=== PATIENT | male | born 1955 | race Caucasian/White ===

== ENCOUNTER 2016-12-22 18:20 | Inpatient (IN) | payer BC, OTHER ==
[~2016-12-22] VITALS: Ht 182.9 cm; Wt 99.3 kg
[2016-12-22] MEDS ORDERED: ATOR40TA PO (18:32)
[2016-12-22] MEDS ORDERED: IRBE75TA5 PO (18:32)
[2016-12-22] MEDS ORDERED: MORPHINE 4 MG/ML 1ML SYRINGE IV ONE (19:30)
[2016-12-22] MEDS ORDERED: ONDANSETRON 4MG/2ML VIAL (J2405) IV ONE ×2 (19:30→23:45)
[2016-12-22] MEDS ORDERED: NS 1,000 ML IV ONE (19:30)
[2016-12-22 19:44] LABS: BASO % 0.2 % (0.0-1.0); EOS # 0.1 K/mm3 (0.0-0.50); EOS % 0.8 % (0.0-3.0); LARGE UNSTAINED CELL # 0.1 K/mm3 (0.0-0.4); LARGE UNSTAINED CELL % 0.4 % (0.0-4.0); LYMPH # 1.6 K/mm3 (1.5-4.5); LYMPH % 8.8 % (24.0-44.0); MEAN CORPUSCULAR HEMOGLOBIN 29.5 pg (27.0-33.0); MEAN CORPUSCULAR HGB CONC 34.2 g/dl (32.0-36.5); MEAN CORPUSCULAR VOLUME 86.4 fl (80.0-96.0); MONO # 0.5 K/mm3 (0.0-0.8); MONO % 2.9 % (0.0-5.0); NEUTROPHILS % 86.8 % (36.0-66.0); PLATELET COUNT, AUTOMATED 193 k/mm3 (150-450); RED CELL DISTRIBUTION WIDTH 13.9 % (11.5-14.5); WHITE BLOOD COUNT 17.3 K/mm3 (4.0-10.0)
[2016-12-22 20:05] LABS: ALBUMIN/GLOBULIN RATIO 1.08 (1.00-1.93); ALKALINE PHOSPHATASE 77 U/L (45-117); ALT/SGPT 24 U/L (12-78); ANION GAP 9 MEQ/L (8-16); AST/SGOT 18 U/L (15-37); BILIRUBIN,DIRECT < 0.1 MG/DL (0.0-0.2); BILIRUBIN,TOTAL 0.3 MG/DL (0.2-1.0); BLOOD UREA NITROGEN 17 MG/DL (7-18); CALCIUM LEVEL 9.4 MG/DL (8.5-10.1); CARBON DIOXIDE LEVEL 31 MEQ/L (21-32); CHLORIDE LEVEL 103 MEQ/L (98-107); CREATININE FOR GFR 1.25 MG/DL (0.70-1.30); GLOMERULAR FILTRATION RATE > 60.0 (>56); GLUCOSE, FASTING 119 MG/DL (70-105); POTASSIUM SERUM 4.1 MEQ/L (3.5-5.1); SODIUM LEVEL 143 MEQ/L (136-145); TOTAL PROTEIN 7.7 GM/DL (6.4-8.2)
[2016-12-22] MEDS ORDERED: MORPHINE 2 MG/ML 1ML SYRINGE IV ONE ×2 (20:30→22:00)
--- NOTE | 2016-12-22 21:40 | REPUSA ---
CLINICAL HISTORY: Right flank pain. TECHNIQUE: Multiple axial, sagittal and coronal CT images were obtained through the abdomen and pelvi s without administration of oral or IV contrast material. COMMENTS: The liver is of uniform attenuation without mass or defect. There is no intra or extrahepatic biliary ductal dilatation. The spleen is normal. The gallbladder is within normal limits. The pancreas is of normal contour and attenuation characteristics. A 12 mm hypodense lesion is noted in the left adrena l gland compatible with small adenoma. Small hiatal hernia is present. The kidneys are normal in size, shape and configuration. No renal or ureteral calculi are identified. A 2 mm calculus is noted in the right UVJ producing mild to moderate hydroureteronephrosis. There is no evidence for appendicitis. Note is made of nodular wall thickening involving rectal wall highly suspicious for malignancy. Sigmoidoscopy is recommended. No evidence for small or large bowel obstruction. There is no evidence of abdominal ascites or lymphadenopathy. There is no evidence of intrinsic or extrinsic bladder mass. There is no pelvic ascites or lymphadeno sebastian. Images of the lung bases show no evidence of pleural or parenchymal mass. There are no pleural effusi ons. The bony structures are free of lytic or blastic lesions. Multilevel degenerative changes are seen in volving the thoracolumbar spine. Scattered calcifications are seen involving the aorta and major branches compatible with atherosclero sis. IMPRESSION: 1. A 2 mm calculus is noted in the right UVJ producing mild to moderate hydroureteronephrosis. 2. A 12 mm hypodense lesion is noted in the left adrenal gland compatible with small adenoma. Small hiatal hernia is present. 3. Nodular wall thickening involving rectal wall highly suspicious for malignancy. Sigmoidoscopy is recommended. Thank you for your kind referral of this patient. We appreciate the opportunity to participate in thi s patient's care.
[2016-12-22] MEDS ORDERED: METOCLOPRAMIDE INJ 10MG/2ML VIAL (J2765) IV ONE (22:00)
[2016-12-22] MEDS ORDERED: REGL10TA6 PO (22:40)
[2016-12-22] MEDS ORDERED: MOTR200T44 PO (22:40)
[2016-12-22] MEDS ORDERED: HYDR-3713 PO (22:40)
[2016-12-22] MEDS ORDERED: FLOM5CAP PO (22:40)
[2016-12-22] MEDS ORDERED: CIPR500T89 PO (22:53)
[2016-12-22] MEDS ORDERED: NORCO 5/325MG TABLET (BULK) PO ONE (23:00)
[2016-12-22] MEDS ORDERED: CIPROFLOXACIN 500 MG TAB PO ONE (23:00)
[2016-12-22] MEDS ORDERED: KETOROLAC 30 MG/ML VIAL (J1885) IV ONE (23:45)
[2016-12-23] MEDS ORDERED: ONDANSETRON 4MG/2ML VIAL (J2405) IV PRN (00:30)
[2016-12-23] MEDS ORDERED: ACETAMINOPHEN TAB 650MG DOSE (2X325MG) PO PRN (00:30)
[2016-12-23] MEDS ORDERED: FISH1000 PO (00:41)
[2016-12-23] MEDS ORDERED: IBUPOTC PO (00:41)
[2016-12-23] MEDS ORDERED: ASPI81TAEC PO (00:41)
--- NOTE | 2016-12-23 00:43 | HPEPDOC ---
General Date of Admission Dec 23, 2016 at 00:18 Chief Complaint The patient is a 61-year-old male Presented to the ER with complaints of right flank pain, associated with nausea and vomiting. History of Present Illness Patient is a 61 year old male with a PMHx of HTN and DLP who presented to the ER with complaints of right sided flank pain that started at 4PM today. He notes that he began to notice a pain in his right flank, described as a steady, 8/10, non-radiating, alleviated with only morphine that he got in the ER and not aggravated by any other factors. He noted that he had associated nausea and vomiting. He reports vomiting >10x mostly food stuff, no blood. He denies any dysuria, frequency or blood in his urine. He does note an abnormal odor. He has not had a history of kidney stones or kidney disease in the past. He denies any chest pain, shortness of breath or palpitations. He denies any new diarrhea or constipation. Denies any blood in his stool. Home Medications Scheduled Aspirin (Aspirin EC) 81 Mg Tabec 81 MG PO DAILY (Reported) Atorvastatin Calcium (Atorvastatin Calcium) 40 Mg Tab 40 MG PO DAILY (Reported ) Fish Oil (Fish Oil) 1,000 Mg Cap 1,000 MG PO DAILY (Reported) Irbesartan (Irbesartan) 75 Mg Tab 75 MG PO DAILY (Reported) Scheduled PRN Ibuprofen (Ibuprofen) 200 Mg Tab 400 MG PO Q6H PRN PRN PAIN (Reported) Allergies Coded Allergies: No Known Allergies (Unverified , 12/22/16) Past Medical History Medical History HTN and DLP Surgical History Left knee ACL tear repair Family History - Non-contributory Social History - Denies the use of alcohol or illicit drugs; Smoker of 40 years at 1.5 ppd - Denies recent travel or sick contacts - Lives with - Occupation; wholesale produce distributor Review of Symptoms Other systems Constitutional: Denies weight loss, change in appetite, or recent trauma Eyes: No visual changes or eye pain Ears, Nose, Throat: Denies nose bleeds, or difficulty swallowing Cardiovascular: Denies chest pain, sweating, or orthopnea Respiratory: Denies cough, wheezing, or shortness of breath GI: Positives nausea, vomiting, abdominal pain, No diarrhea or constipation : Denies pain with urination or frequency Musculoskeletal: Denies joint pain or swelling Neuro / Psych: Denies muscle weakness or sensory loss Skin: No skin rashes noted All other review of systems negative; otherwise stated in history of present illness Screening: - Colonoscopy never done Vital Signs - Vitals: BP 172/81, HR 69, RR 18, Sat 95%RA, Temp 98.8F - General: Lying in bed, No acute distress, Speaking in full sentences, AAOx3 - HEENT: NC, AT, PERRLA, EOMI - CVS: RRR, +S1S2, - Murmurs / rubs / gallops - Lungs: Fair air entry bilaterally, Clear to auscultation, No wheezing / rales / rhonchi - Abdomen: Soft, Non-distended, Mild tenderness at RLQ, + Bowel sounds x 4 - Extremities: + PPx4, No lower extremity edema, No calf tenderness - Neuro: No focal motor or sensory deficit - Skin: No visible rashes Laboratory Data Labs 24H Laboratory Tests 2 12/22/16 19:34: Aspartate Amino Transf (AST/SGOT) 18, Alanine Aminotransferase (ALT/SGPT) 24, Alkaline Phosphatase 77, Total Bilirubin 0.3, Direct Bilirubin < 0.1, Albumin 4.0, Albumin/Globulin Ratio 1.08, Anion Gap 9, White Blood Count 17.3H, Red Blood Count 5.32, Hemoglobin 15.7, Hematocrit 46.0, Mean Corpuscular Volume 86.4 , Mean Corpuscular Hemoglobin 29.5, Mean Corpuscular Hemoglobin Concent 34.2, Red Cell Distribution Width 13.9, Platelet Count 193, Neutrophils (%) (Auto) 86.8H, Lymphocytes (%) (Auto) 8.8L, Monocytes (%) (Auto) 2.9, Eosinophils (%) ( Auto) 0.8, Basophils (%) (Auto) 0.2, Neutrophils # (Auto) 15.0H, Lymphocytes # ( Auto) 1.6, Monocytes # (Auto) 0.5, Eosinophils # (Auto) 0.1, Basophils # (Auto) 0.0, Calcium Level 9.4, Glomerular Filtration Rate > 60.0, Large Unclassified Cells # 0.1, Large Unclassified Cells % 0.4, Lipase 81, Total Protein 7.7 12/22/16 21:45: Urine Amorphous Sediment SMALLH, Urine Appearance HAZY, Urine Color YELLOW, Urine pH 7.0, Urine Specific [place] 1.023, Urine Protein 1+H, Urine Glucose (UA ) NEGATIVE, Urine Ketones 1+H, Urine Urobilinogen 0.2, Urine Bilirubin NEGATIVE , Urine Leukocyte Esterase TRACEH, Urine Bacteria (Auto) NEGATIVE, Urine Blood 2 +H, Urine Calcium Carbonate Cryst(Auto) , Urine Calcium Oxalate Cryst (Auto) , Urine Calcium Phosphate Nelda (Auto) , Urine Cellular Casts , Urine Cystine Crystals , Urine Granular Casts (Auto) , Urine Hyaline Casts (Auto) 0, Urine Leucine Crystals , Urine Mucus (Auto) SMALL, Urine Nitrite NEGATIVE, Urine Oval Fat Bodies (Auto) , Urine RBC (Auto) 100H, Urine Renal Epithelial Cells , Urine Sperm (Auto) SMALLH, Urine Squamous Epithelial Cells 0, Urine Transitional Epithelial Cells , Urine Trichomonas (Auto) , Urine Triple Phosphate Cryst (Auto ) , Urine Tyrosine Crystals , Urine Uric Acid Crystals (Auto) , Urine WBC (Auto ) 6H, Urine Waxy Casts (Auto) , Urine Yeast-Like Cells (Auto) CBC/BMP Laboratory Tests 12/22/16 19:34 Red Blood Count 5.32, Mean Corpuscular Volume 86.4, Mean Corpuscular Hemoglobin 29.5, Mean Corpuscular Hemoglobin Concent 34.2, Red Cell Distribution Width 13.9 , Neutrophils (%) (Auto) 86.8 H, Lymphocytes (%) (Auto) 8.8 L, Monocytes (%) ( Auto) 2.9, Eosinophils (%) (Auto) 0.8, Basophils (%) (Auto) 0.2, Neutrophils # ( Auto) 15.0 H, Lymphocytes # (Auto) 1.6, Monocytes # (Auto) 0.5, Eosinophils # ( Auto) 0.1, Basophils # (Auto) 0.0 Microbiology Microbiology 12/22/16 Urine Culture, Received Pending Plan / VTE VTE Prophylaxis Ordered?: Yes Plan Plan Right flank pain associated with nausea and vomiting likely 2/2 hydronpehrosis and nephrolithiasis - Presented to the ER with complaints that started at 4pm - No history of kidney stones or kidney disease - Physical with mild RLQ pain - UA with 2+ blood, Trace LE - Leukocytosis on blood work - CT abdomen 12/22: 2mm calculus, in UVJ causing mild-moderate hydroureteronephrosis - Will start IV fluid hydration, will start Ceftriaxone - will start symptomatic control with morphine - Urology has been consulted by ER physician will evaluate the patient in the ER; possible intervention so will keep patient NPO Nodular wall thickening of rectal wall possible malignancy - Patient has not had a colonoscopy in the past - Denies any recent change in weight - Will check stool for occult blood - Will need to have a colonoscopy completed; can be completed as out patient Leukocytosis possibly reative, possibly infectious - will check urine culture, blood cultures - will start ceftriaxone IV and IV fluid hydration HTN - BP currently poorly controlled - will restart home medications with holding parameters and reassess DLP - c/w home medications Gastrointestinal prophylaxis - Will start protonix DVT prophylaxis - Will start heparin VALERIO LOVETT MD Dec 23, 2016 00:43
[2016-12-23] MEDS ORDERED: MORPHINE 4 MG/ML 1ML SYRINGE IV PRN (01:00)
[2016-12-23] MEDS ORDERED: FLOM5CAP PO ×2 (01:20→14:33)
[2016-12-23] MEDS ORDERED: TAMSULOSIN 0.4 MG CAP PO ONE (01:40)
[2016-12-23 02:00] VITALS: BP 119/57
[2016-12-23] MEDS ORDERED: cefTRIAXone SOD 1 GM in D5W MINI-BAG PLUS 50 ML IV SCH (02:00)
[2016-12-23] MEDS: NS 1,000 ML IV SCH ×2 (02:55→12:29)
[2016-12-23 06:00] VITALS: BP 122/62
[2016-12-23] MEDS: HEPARIN SOD (PORCINE) 5000 UNITS/ML VIAL SC SCH ×2 (06:00→14:00)
[2016-12-23 07:10] LABS: BASO % 0.2 % (0.0-1.0); EOS # 0.1 K/mm3 (0.0-0.50); LARGE UNSTAINED CELL # 0.1 K/mm3 (0.0-0.4); LARGE UNSTAINED CELL % 0.9 % (0.0-4.0); LYMPH # 1.3 K/mm3 (1.5-4.5); LYMPH % 11.9 % (24.0-44.0); MEAN CORPUSCULAR HEMOGLOBIN 28.5 pg (27.0-33.0); MEAN CORPUSCULAR HGB CONC 32.8 g/dl (32.0-36.5); MEAN CORPUSCULAR VOLUME 86.9 fl (80.0-96.0); MONO # 0.5 K/mm3 (0.0-0.8); MONO % 4.9 % (0.0-5.0); NEUTROPHILS # 8.7 K/mm3 (1.8-7.7); NEUTROPHILS % 81.1 % (36.0-66.0); PLATELET COUNT, AUTOMATED 141 k/mm3 (150-450); RED CELL DISTRIBUTION WIDTH 13.8 % (11.5-14.5); WHITE BLOOD COUNT 10.7 K/mm3 (4.0-10.0)
[2016-12-23 07:39] LABS: ALBUMIN 3.2 GM/DL (3.2-5.2); ALBUMIN/GLOBULIN RATIO 1.03 (1.00-1.93); BILIRUBIN,TOTAL 0.3 MG/DL (0.2-1.0); CALCIUM LEVEL 8.5 MG/DL (8.5-10.1); CREATININE FOR GFR 1.92 MG/DL (0.70-1.30); GLOMERULAR FILTRATION RATE 38.4 (>56); MAGNESIUM LEVEL 1.9 MG/DL (1.8-2.4); POTASSIUM SERUM 4.1 MEQ/L (3.5-5.1); TOTAL PROTEIN 6.3 GM/DL (6.4-8.2)
--- NOTE | 2016-12-23 08:26 | ED PDOC ---
Provider Note radiology report faxed to Joy Navarro MD Dec 23, 2016 08:26
[2016-12-23] MEDS ORDERED: IRBESARTAN 75MG TABLET PO SCH (09:00)
[2016-12-23] MEDS ORDERED: ASPIRIN 81 MG ENTERIC TAB PO SCH (09:00)
[2016-12-23] MEDS ORDERED: TAMSULOSIN 0.4 MG CAP PO SCH (09:00)
[2016-12-23] MEDS ORDERED: ATORVASTATIN 20 MG TAB PO SCH (09:00)
[2016-12-23 09:32] VITALS: BP 122/62
--- NOTE | 2016-12-23 10:05 | IPNPDOC ---
Subjective Date Seen The patient was seen on 12/23/16. Subjective Chief Complaint/HPI The patient is a 61-year-old male admitted with a reason for visit of Hydronephrosis/Nephrolithiasis. Events since last encounter Admitted overnight for right UPV renal calculi with hydronephrosis. Given Flomax 0.8 mg po x1. started on IVF 100 cc per hour. patient states pain is improved. Denies n/v. CT also showed thickening to rectal wall, highly suspicious for neoplasm. Patient has never had colonoscopy. States wishes to have colonoscopy with Dr. Healy as an outpatient. Constitutional: Denies: Chills, Fever, Night Sweats Pulmonary: Denies: Cough, Dyspnea Cardiovascular: Denies: Chest Pain, Lt Headedness, Orthopnea, Palpitations, Paroxysmal Noc. Dyspnea Gastrointestinal: Denies: Abdominal Pain, Constipation, Diarrhea, Nausea, Vomiting Genitourinary: Denies: Dysuria, Frequency, Incontinence, Retention Psych: Reports: Mood Normal, Denies: Depression, Memory Issues Objective Physical Examination General Exam: Positive: Alert, No Acute Distress Eye Exam: Positive: Conjunctiva & lids normal, EOMI, PERRLA, Negative: Sclera icteric ENT Exam: Positive: Atraumatic, Mucous membr. moist/pink, Pharynx Normal Neck Exam: Positive: Supple, Negative: JVD, thyromegaly Chest Exam: Positive: Clear to auscultation, Normal air movement Heart Exam: Positive: Normal S1, Normal S2, Rate Normal, Regular Rhythm, Negative: Murmurs, Rubs Abdomen Exam: Positive: Normal bowel sounds, Soft, Negative: Hepatospenomegaly, Tenderness Extremity Exam: Negative: Edema Skin Exam: Positive: Nl turgor and temperature, Negative: Breakdown, Rash Psych Exam: Positive: Mental status NL, Mood NL, Oriented x 3 Assessment /Plan Problems (1) Kidney stone on right side Status: Acute Problem Text: Symptoms improving. renal US ordered to confirm hydronephrosis. Urology consult pending. (2) Adrenal adenoma Status: Acute Problem Specific Plan: Monitor Clinically (3) Abnormal finding on CT scan Status: Acute Problem Text: wall thickening to rectum on CT scan. needs colonoscopy as an outpatient. Prefers Niraj (4) Hydronephrosis Status: Acute Problem Text: renal US ordered to confirm. Urology consult pending. (5) Nephrolithiasis Status: Acute (6) HTN (hypertension) Status: Chronic Response to Treatment: Stable Problem Text: Continue Avapro 75 mg po daily Plan/VTE VTE Prophylaxis Ordered?: Yes VS, I&O, 24H, [facility] Vital Signs/I&O Vital Signs Date Time Temp Pulse Resp B/P Pulse Ox O2 Delivery O2 Flow Rate FiO2 12/23/16 09:32 122/62 12/23/16 06:00 98.1 79 18 99 Room Air I&O- Last 24 Hours up to 6 AM 12/23/16 05:59 Intake Total 10 ml Balance 10 ml Laboratory Data 24H LABS Laboratory Tests 2 12/22/16 19:34: Aspartate Amino Transf (AST/SGOT) 18, Alanine Aminotransferase (ALT/SGPT) 24, Alkaline Phosphatase 77, Total Bilirubin 0.3, Direct Bilirubin < 0.1, Albumin 4.0, Albumin/Globulin Ratio 1.08, Anion Gap 9, White Blood Count 17.3H, Red Blood Count 5.32, Hemoglobin 15.7, Hematocrit 46.0, Mean Corpuscular Volume 86.4 , Mean Corpuscular Hemoglobin 29.5, Mean Corpuscular Hemoglobin Concent 34.2, Red Cell Distribution Width 13.9, Platelet Count 193, Neutrophils (%) (Auto) 86.8H, Lymphocytes (%) (Auto) 8.8L, Monocytes (%) (Auto) 2.9, Eosinophils (%) ( Auto) 0.8, Basophils (%) (Auto) 0.2, Neutrophils # (Auto) 15.0H, Lymphocytes # ( Auto) 1.6, Monocytes # (Auto) 0.5, Eosinophils # (Auto) 0.1, Basophils # (Auto) 0.0, Calcium Level 9.4, Glomerular Filtration Rate > 60.0, Large Unclassified Cells # 0.1, Large Unclassified Cells % 0.4, Lipase 81, Total Protein 7.7 12/22/16 21:45: Urine Amorphous Sediment SMALLH, Urine Appearance HAZY, Urine Color YELLOW, Urine pH 7.0, Urine Specific [place] 1.023, Urine Protein 1+H, Urine Glucose (UA ) NEGATIVE, Urine Ketones 1+H, Urine Urobilinogen 0.2, Urine Bilirubin NEGATIVE , Urine Leukocyte Esterase TRACEH, Urine Bacteria (Auto) NEGATIVE, Urine Blood 2 +H, Urine Calcium Carbonate Cryst(Auto) , Urine Calcium Oxalate Cryst (Auto) , Urine Calcium Phosphate Nelda (Auto) , Urine Cellular Casts , Urine Cystine Crystals , Urine Granular Casts (Auto) , Urine Hyaline Casts (Auto) 0, Urine Leucine Crystals , Urine Mucus (Auto) SMALL, Urine Nitrite NEGATIVE, Urine Oval Fat Bodies (Auto) , Urine RBC (Auto) 100H, Urine Renal Epithelial Cells , Urine Sperm (Auto) SMALLH, Urine Squamous Epithelial Cells 0, Urine Transitional Epithelial Cells , Urine Trichomonas (Auto) , Urine Triple Phosphate Cryst (Auto ) , Urine Tyrosine Crystals , Urine Uric Acid Crystals (Auto) , Urine WBC (Auto ) 6H, Urine Waxy Casts (Auto) , Urine Yeast-Like Cells (Auto) 12/23/16 06:55: Lactic Acid (Sepsis) 1.2 12/23/16 06:56: Aspartate Amino Transf (AST/SGOT) 16, Alanine Aminotransferase (ALT/SGPT) 19, Alkaline Phosphatase 65, Total Bilirubin 0.3, Albumin 3.2, Albumin/Globulin Ratio 1.03, Anion Gap 9, White Blood Count 10.7H, Red Blood Count 4.88, Hemoglobin 13.9L, Hematocrit 42.4, Mean Corpuscular Volume 86.9, Mean Corpuscular Hemoglobin 28.5, Mean Corpuscular Hemoglobin Concent 32.8, Red Cell Distribution Width 13.8, Platelet Count 141L, Neutrophils (%) (Auto) 81.1H, Lymphocytes (%) (Auto) 11.9L, Monocytes (%) (Auto) 4.9, Eosinophils (%) (Auto) 1.0, Basophils (%) (Auto) 0.2, Neutrophils # (Auto) 8.7H, Lymphocytes # (Auto) 1.3L, Monocytes # (Auto) 0.5, Eosinophils # (Auto) 0.1, Basophils # (Auto) 0.0, Calcium Level 8.5, Glomerular Filtration Rate 38.4L, Large Unclassified Cells # 0.1, Large Unclassified Cells % 0.9, Total Protein 6.3L, Blood Urea Nitrogen 22H , Creatinine 1.92#H, Sodium Level 145, Potassium Level 4.1, Chloride Level 107, Carbon Dioxide Level 29, Magnesium Level 1.9 CBC/BMP Laboratory Tests 12/22/16 19:34 Red Blood Count 5.32, Mean Corpuscular Volume 86.4, Mean Corpuscular Hemoglobin 29.5, Mean Corpuscular Hemoglobin Concent 34.2, Red Cell Distribution Width 13.9 , Neutrophils (%) (Auto) 86.8 H, Lymphocytes (%) (Auto) 8.8 L, Monocytes (%) ( Auto) 2.9, Eosinophils (%) (Auto) 0.8, Basophils (%) (Auto) 0.2, Neutrophils # ( Auto) 15.0 H, Lymphocytes # (Auto) 1.6, Monocytes # (Auto) 0.5, Eosinophils # ( Auto) 0.1, Basophils # (Auto) 0.0 12/23/16 06:56 Red Blood Count 4.88, Mean Corpuscular Volume 86.9, Mean Corpuscular Hemoglobin 28.5, Mean Corpuscular Hemoglobin Concent 32.8, Red Cell Distribution Width 13.8 , Neutrophils (%) (Auto) 81.1 H, Lymphocytes (%) (Auto) 11.9 L, Monocytes (%) ( Auto) 4.9, Eosinophils (%) (Auto) 1.0, Basophils (%) (Auto) 0.2, Neutrophils # ( Auto) 8.7 H, Lymphocytes # (Auto) 1.3 L, Monocytes # (Auto) 0.5, Eosinophils # ( Auto) 0.1, Basophils # (Auto) 0.0, Calcium Level 8.5, Aspartate Amino Transf ( AST/SGOT) 16, Alanine Aminotransferase (ALT/SGPT) 19, Alkaline Phosphatase 65, Total Bilirubin 0.3, Total Protein 6.3 L, Albumin 3.2 Microbiology Microbiology 12/23/16 Blood Culture, Received Pending 12/22/16 Urine Culture, Received Pending Hannah Arvizu [facility] [place] Dec 23, 2016 10:05
--- NOTE | 2016-12-23 13:15 | REP ---
To show the delayed renal ultrasound: Comparison is the CT abdomen pelvis dated 12/22/1924. The kidneys are normal size. The right kidney and measures 12.5 x 5.0 x 5.2 cm. Left kidney measures 12.7, 5.8 x 6.8 cm. The right hydronephrosis identified by CT 12/22/2016 is no longer present. There is no left hydronephrosis. There are no masses, cysts or calculi within the right and left kidneys. Bladder ultrasound: No bladder wall masses are identified. With color Doppler imaging we are unable to identify right or left ureteral jets. However, there is no hydronephrosis. Impression: There is no hydronephrosis. The kidneys are otherwise unremarkable. The right hydronephrosis identified by CT on 12/22/2016 is no longer present. Signed by Da Zelaya MD 12/23/2016 01:07 P
[2016-12-23] MEDS ORDERED: OXYC1TAB23 PO (13:52)
--- NOTE | 2016-12-24 08:43 | DSES ---
DATE OF ADMISSION: 12/23/2016 DATE OF DISCHARGE: 12/23/2016 REASON FOR ADMISSION: Patient is admitted with complaint of right lower quadrant discomfort, colicky in nature began on day of admission. Pain in right flank severe. He had some emesis. He had no dysuria, frequency, no previous history of stone disease. MEDICATIONS: - irbesartan 75 mg daily - atorvastatin 40 mg daily - 81 mg aspirin and as needed - as needed use of ibuprofen. ALLERGIES: NO KNOWN DRUG ALLERGIES. HOSPITAL COURSE: The patient was admitted, hydrated, given Rocephin as a daily dose and Cipro a single dose. Physical findings were otherwise unremarkable although the CT did demonstrate mass lesion in the rectum suspicious for neoplasm. The CT also demonstrated hydroureter on the right, 2 mm calculus at the right ureterovesical junction (UVJ) producing mild to moderate hydroureteronephrosis. On renal ultrasound done on the following day the hydronephrosis had resolved and his pain has resolved. He was seen in consultation with Dr. Wood, who agreed this 2 mm stone was likely the culprit and causing his symptoms which has now resolved and the patient is safe to be discharged. At this time he will be discharged with tamsulosin 0.4 mg daily added to his drug regimen. He will continue his atorvastatin and irbesartan. Of note is the fact that his creatinine climbed from admission where he was normal at 1.25-1.92 on the morning of discharge. This will require follow up when he sees Dr. Ornelas in one week. Activity will be as tolerated and he is to see Dr. Wood in 1-2 weeks followup. DISCHARGE DIAGNOSIS: 1. Right-sided ureterolithiasis creating transient hydroureter and hydronephrosis which have now resolved. 2. Rectal mass demonstrated on CT scan. 3. Acute renal failure which is anticipated to resolved upon rehydration and upon successful drainage of the hydroureter on the right. ACTIVITY: As tolerated. DIET: 2 grams sodium is recommended. FOLLOWUP: Followup with Dr. Ornelas in one week. Followup with Dr. Wood in 1-2 weeks. He also will need colonoscopy to be set up with Dr. Healy as soon as can be arranged to demonstrate the finding on CT. A communication will be sent to Dr. Ornelas through the [employer] system to alert him to this requirement.
== END 2016-12-23 15:25 | disposition home or self-care (01) | DRG 465 ==
LOC: M ED 19:18 → M ED INP 12-23 00:18 → M MS5PR 12-23 01:25
PROVIDERS: ADMIT Internal Medicine; ATTEND Family Medicine
DX: N13.2 Hydronephrosis with renal and ureteral calculous obstruction (principal); N17.9 Acute kidney failure, unspecified; Z79.82 Long term (current) use of aspirin; Z79.899 Other long term (current) drug therapy; F17.200 Nicotine dependence, unspecified, uncomplicated; I10 Essential (primary) hypertension

== ENCOUNTER → 2016-12-31 | Outpatient (REF) | payer OTHER ==
[~2016-12-31] MED LIST: ASPI81TAEC PO; ATOR40TA PO; CIPR500T89 PO; FISH1000 PO; FLOM5CAP PO; HYDR-3713 PO; IBUPOTC PO; IRBE75TA5 PO; MOTR200T44 PO; OXYC1TAB23 PO; REGL10TA6 PO
[2016-12-31 13:33] LABS: BASO % 0.4 % (0.0-1.0); EOS # 0.1 K/mm3 (0.0-0.50); EOS % 1.8 % (0.0-3.0); LARGE UNSTAINED CELL # 0.1 K/mm3 (0.0-0.4); LARGE UNSTAINED CELL % 1.1 % (0.0-4.0); LYMPH # 1.8 K/mm3 (1.5-4.5); LYMPH % 25.6 % (24.0-44.0); MEAN CORPUSCULAR HEMOGLOBIN 29.1 pg (27.0-33.0); MEAN CORPUSCULAR VOLUME 88.1 fl (80.0-96.0); MONO # 0.3 K/mm3 (0.0-0.8); MONO % 4.4 % (0.0-5.0); NEUTROPHILS # 4.4 K/mm3 (1.8-7.7); NEUTROPHILS % 66.8 % (36.0-66.0); PLATELET COUNT, AUTOMATED 133 k/mm3 (150-450); RED CELL DISTRIBUTION WIDTH 13.6 % (11.5-14.5); WHITE BLOOD COUNT 6.6 K/mm3 (4.0-10.0)
[2016-12-31 13:56] LABS: ALBUMIN 3.6 GM/DL (3.2-5.2); ALBUMIN/GLOBULIN RATIO 1.16 (1.00-1.93); ALKALINE PHOSPHATASE 73 U/L (45-117); ALT/SGPT 23 U/L (12-78); ANION GAP 6 MEQ/L (8-16); AST/SGOT 14 U/L (15-37); BILIRUBIN,TOTAL 0.4 MG/DL (0.2-1.0); BLOOD UREA NITROGEN 16 MG/DL (7-18); CALCIUM LEVEL 9.1 MG/DL (8.5-10.1); CARBON DIOXIDE LEVEL 30 MEQ/L (21-32); CHLORIDE LEVEL 106 MEQ/L (98-107); CREATININE FOR GFR 0.98 MG/DL (0.70-1.30); FERRITIN 201 NG/ML (26-388); GLOMERULAR FILTRATION RATE > 60.0 (>56); GLUCOSE, FASTING 82 MG/DL (70-105); PERCENT SATURATION 18.6 % (19.7-37.4); POTASSIUM SERUM 4.1 MEQ/L (3.5-5.1); SODIUM LEVEL 142 MEQ/L (136-145); TOTAL IRON BINDING CAPACITY 318 UG/DL (250-450); TOTAL PROTEIN 6.7 GM/DL (6.4-8.2); URIC ACID 5.8 MG/DL (3.5-7.2)
== END ==
LOC: M SFHCPLAZ 12:10
PROVIDERS: ATTEND Family Medicine
DX: K62.9 Disease of anus and rectum, unspecified (principal); N20.0 Calculus of kidney

== ENCOUNTER → 2017-01-05 | Outpatient (CLI) | payer BC, OTHER ==
[~2017-01-05] VITALS: Ht 185.4 cm; Wt 100.7 kg
[~2017-01-05] MED LIST changes: +LIDOCAINE 2% INJ 100 MG/5 ML SDV (FOR ANES.) As Ordered ONE; +LR 1,000 ML IV SCH; +PROPOFOL 200 MG/20 ML VIAL As Ordered ONE
[2017-01-05 15:10] VITALS: BP 155/89
--- NOTE | 2017-01-05 15:18 | ROOR ---
Patient Name: Forrest Vigil Procedure Date: 01/05/2017 1:56 PM Date of : 1955 Age: 61 Room: [facility] Gender: Male Note Status: Finalized Procedure: Colonoscopy Indications: Abnormal CT of the GI tract, Rectal mass Providers: Rohan Sheldon MD Referring MD: Matt Ornelas MD Requesting Provider: Medicines: Monitored Anesthesia Care Complications: No immediate complications. Procedure: Pre-Anesthesia Assessment: - Prior to the procedure, a History and Physical was performed, and patient medications and allergies were reviewed. The patient is competent. The risks and benefits of the procedure and the sedation options and risks were discussed with the patient. All questions were answered and informed consent was obtained. Patient identification and proposed procedure were verified by the physician, the nurse and the anesthesiologist in the procedure room. Mental Status Examination: alert and oriented. Airway Examination: normal oropharyngeal airway and neck mobility. CV Examination: regular rate and rhythm. Prophylactic Antibiotics: The patient does not require prophylactic antibiotics. Prior Anticoagulants: The patient has taken no previous anticoagulant or antiplatelet agents. ASA Grade Assessment: II - A patient with mild systemic disease. After reviewing the risks and benefits, the patient was deemed in satisfactory condition to undergo the procedure. The anesthesia plan was to use monitored anesthesia care (MAC). Immediately prior to administration of medications, the patient was re-assessed for adequacy to receive sedatives. The heart rate, respiratory rate, oxygen saturations, blood pressure, adequacy of pulmonary ventilation, and response to care were monitored throughout the procedure. The physical status of the patient was re-assessed after the procedure. The Colonoscope was introduced through the anus and advanced to the cecum, identified by appendiceal orifice and ileocecal valve. The colonoscopy was performed without difficulty. The colonoscopy was somewhat difficult due to a tortuous colon. Successful completion of the procedure was aided by using manual pressure. The patient tolerated the procedure well. The quality of the bowel preparation was good. Findings: The digital rectal exam revealed a soft and nodular rectal mass palpated 3.0 cm from the anal verge. The mass was non-circumferential and located predominantly at the left bowel wall. A 5 mm polyp was found in the hepatic flexure. The polyp was sessile. Polyp slipped behind a fold and was lost to view. A 4 mm polyp was found at 60 cm proximal to the anus. The polyp was sessile. The polyp was removed with a cold snare. Resection and retrieval were complete. A large polyp was found in the rectum. The polyp was multi-lobulated and sessile. Biopsies were taken with a cold forceps for histology. The polyp extended approximately 75% of the circumference of the rectum. This extended up to 12 cm from the anal verge at its highest point. It was most prominent on the patients left side between the prostate and the posterior midline. At one point the more carpet like portion of the polyp seems to extend slightly below the dentate line. There was no ulceration. Impression: - Rectal mass 3.0 cm from the anal verge. - One 5 mm polyp at the hepatic flexure. - One 4 mm polyp at 60 cm proximal to the anus, removed with a cold snare. Resected and retrieved. - One large polyp in the rectum. Biopsied. Recommendation: - Await pathology results. - Return to endoscopist at appointment to be scheduled. Rohan Sheldon MD 01/05/2017 3:17:52 PM Number of Addenda: 0 Note Initiated On: 01/05/2017 1:56 PM Estimated Blood Loss: Estimated blood loss was minimal.
== END | disposition home or self-care (01) ==
LOC: M OPP 13:08
PROVIDERS: ATTEND Surgery
DX: R93.3 Abnormal findings on diagnostic imaging of other parts of digestive tract (principal); D12.3 Benign neoplasm of transverse colon; D12.4 Benign neoplasm of descending colon; D12.8 Benign neoplasm of rectum; K62.89 Other specified diseases of anus and rectum; I10 Essential (primary) hypertension; E78.5 Hyperlipidemia, unspecified; M17.12 Unilateral primary osteoarthritis, left knee; F17.210 Nicotine dependence, cigarettes, uncomplicated; Z87.442 Personal history of urinary calculi; Z79.82 Long term (current) use of aspirin; Z79.899 Other long term (current) drug therapy

== ENCOUNTER → 2017-01-11 | Outpatient (CLI) | payer BC, OTHER ==
[~2017-01-11] MED LIST changes: -LIDOCAINE 2% INJ 100 MG/5 ML SDV (FOR ANES.) As Ordered ONE; -LR 1,000 ML IV SCH; -PROPOFOL 200 MG/20 ML VIAL As Ordered ONE
--- NOTE | 2017-01-11 13:38 | REP ---
MRI PELVIS WITH AND WITHOUT CONTRAST: TECHNIQUE: Multiplanar T1 and T2-weighted images performed pre and post IV gadolinium, with the intravenous administration of 19 mL of gadolinium. Correlation is made with CT exam 12/22/2016. Once again, there is diffuse nodular thickening of the rectum. This appears to be begin approximately 3.5 cm from the anal verge and extends proximally in the rectum for a length of about 8 cm. Inferiorly, the nodular polypoid thickening is relatively circumferential but is most significantly anteriorly and on the left side of the rectum. In the mid rectum, there is only involvement of the anterior and left side of the rectum. At its most superior extent, there appears to be involvement of the right posterior aspect predominantly. There is no evidence of extraluminal extension. No adenopathy is seen in the pelvis, nor is there evidence of free fluid. Incidental note is made of a cyst in the midline of the seminal vesicles which measures approximately 1.5 cm in diameter. No other abnormality is seen. IMPRESSION: Diffuse nodular polypoid thickening of the rectum as discussed above. Signed by Da Gilman MD 01/11/2017 03:55 P
== END ==
LOC: M RAD 09:04
PROVIDERS: ATTEND Surgery
DX: R93.3 Abnormal findings on diagnostic imaging of other parts of digestive tract (principal); D12.8 Benign neoplasm of rectum
CPT/HCPCS: 72197; A9576

== ENCOUNTER → 2017-01-26 | Outpatient (CLI) | payer BC, OTHER ==
[2017-01-26 07:59] LABS: BASO % 0.4 % (0.0-1.0); EOS # 0.2 K/mm3 (0.0-0.50); EOS % 2.1 % (0.0-3.0); LARGE UNSTAINED CELL # 0.1 K/mm3 (0.0-0.4); LARGE UNSTAINED CELL % 1.6 % (0.0-4.0); LYMPH # 2.1 K/mm3 (1.5-4.5); LYMPH % 22.7 % (24.0-44.0); MEAN CORPUSCULAR HEMOGLOBIN 29.4 pg (27.0-33.0); MEAN CORPUSCULAR HGB CONC 33.7 g/dl (32.0-36.5); MONO # 0.3 K/mm3 (0.0-0.8); MONO % 3.9 % (0.0-5.0); NEUTROPHILS % 69.4 % (36.0-66.0); PLATELET COUNT, AUTOMATED 122 k/mm3 (150-450); RED CELL DISTRIBUTION WIDTH 13.4 % (11.5-14.5); WHITE BLOOD COUNT 8.6 K/mm3 (4.0-10.0)
[2017-01-26 08:14] LABS: INR 0.91
[2017-01-26 08:23] LABS: ALBUMIN 3.7 GM/DL (3.2-5.2); ALBUMIN/GLOBULIN RATIO 1.23 (1.00-1.93); ALKALINE PHOSPHATASE 79 U/L (45-117); ALT/SGPT 23 U/L (12-78); ANION GAP 6 MEQ/L (8-16); AST/SGOT 12 U/L (15-37); BILIRUBIN,TOTAL 0.4 MG/DL (0.2-1.0); BLOOD UREA NITROGEN 18 MG/DL (7-18); CALCIUM LEVEL 9.1 MG/DL (8.5-10.1); CARBON DIOXIDE LEVEL 30 MEQ/L (21-32); CHLORIDE LEVEL 107 MEQ/L (98-107); GLOMERULAR FILTRATION RATE > 60.0 (>56); GLUCOSE, FASTING 102 MG/DL (70-105); POTASSIUM SERUM 4.1 MEQ/L (3.5-5.1); SODIUM LEVEL 143 MEQ/L (136-145); TOTAL PROTEIN 6.7 GM/DL (6.4-8.2)
== END ==
LOC: M LAB 07:19
PROVIDERS: ATTEND Colon & Rectal Surgery
DX: K62.1 Rectal polyp (principal)

== ENCOUNTER → 2017-02-15 | Outpatient (REF) | payer BC, OTHER ==
[2017-02-15 11:53] LABS: MEAN CORPUSCULAR HEMOGLOBIN 30.2 pg (27.0-33.0); MEAN CORPUSCULAR HGB CONC 34.5 g/dl (32.0-36.5); MEAN CORPUSCULAR VOLUME 87.5 fl (80.0-96.0); RED CELL DISTRIBUTION WIDTH 13.4 % (11.5-14.5); WHITE BLOOD COUNT 9.2 K/mm3 (4.0-10.0)
[2017-02-15 12:11] LABS: ALBUMIN 3.5 GM/DL (3.2-5.2); ALBUMIN/GLOBULIN RATIO 1.17 (1.00-1.93); ALKALINE PHOSPHATASE 82 U/L (45-117); ALT/SGPT 27 U/L (12-78); ANION GAP 4 MEQ/L (8-16); AST/SGOT 14 U/L (15-37); BILIRUBIN,TOTAL 0.3 MG/DL (0.2-1.0); BLOOD UREA NITROGEN 13 MG/DL (7-18); CALCIUM LEVEL 9.1 MG/DL (8.5-10.1); CARBON DIOXIDE LEVEL 30 MEQ/L (21-32); CHLORIDE LEVEL 108 MEQ/L (98-107); CREATININE FOR GFR 0.97 MG/DL (0.70-1.30); GLOMERULAR FILTRATION RATE > 60.0 (>56); GLUCOSE, FASTING 83 MG/DL (70-105); POTASSIUM SERUM 4.2 MEQ/L (3.5-5.1); SODIUM LEVEL 142 MEQ/L (136-145); TOTAL PROTEIN 6.5 GM/DL (6.4-8.2)
[2017-02-15 12:20] LABS: INR 1.03
== END ==
LOC: M LABDRAWP 11:27
DX: Z01.818 Encounter for other preprocedural examination (principal); D37.5 Neoplasm of uncertain behavior of rectum; F17.200 Nicotine dependence, unspecified, uncomplicated

== ENCOUNTER → 2017-05-31 | Outpatient (REF) | payer OTHER ==
[~2017-05-31] MED LIST changes: -ATOR40TA PO; +ATOR40TA75 PO; +CIPR-249 PO; -CIPR500T89 PO
[2017-05-31 13:51] LABS: BASO % 0.4 % (0.0-1.0); EOS # 0.2 K/mm3 (0.0-0.50); EOS % 2.7 % (0.0-3.0); LARGE UNSTAINED CELL # 0.1 K/mm3 (0.0-0.4); LARGE UNSTAINED CELL % 1.7 % (0.0-4.0); LYMPH # 1.7 K/mm3 (1.5-4.5); LYMPH % 23.8 % (24.0-44.0); MEAN CORPUSCULAR HEMOGLOBIN 29.8 pg (27.0-33.0); MEAN CORPUSCULAR HGB CONC 34.1 g/dl (32.0-36.5); MEAN CORPUSCULAR VOLUME 87.6 fl (80.0-96.0); MONO # 0.3 K/mm3 (0.0-0.8); MONO % 4.2 % (0.0-5.0); NEUTROPHILS # 4.7 K/mm3 (1.8-7.7); NEUTROPHILS % 67.1 % (36.0-66.0); PLATELET COUNT, AUTOMATED 145 k/mm3 (150-450); RED CELL DISTRIBUTION WIDTH 13.6 % (11.5-14.5); WHITE BLOOD COUNT 6.9 K/mm3 (4.0-10.0)
[2017-05-31 13:57] LABS: ALBUMIN 3.6 GM/DL (3.2-5.2); ALBUMIN/GLOBULIN RATIO 1.13 (1.00-1.93); ALKALINE PHOSPHATASE 77 U/L (45-117); ALT/SGPT 36 U/L (12-78); ANION GAP 6 MEQ/L (8-16); AST/SGOT 17 U/L (15-37); BILIRUBIN,TOTAL 0.3 MG/DL (0.2-1.0); BLOOD UREA NITROGEN 17 MG/DL (7-18); CALCIUM LEVEL 9.2 MG/DL (8.5-10.1); CARBON DIOXIDE LEVEL 30 MEQ/L (21-32); CHLORIDE LEVEL 107 MEQ/L (98-107); CHOLESTEROL LEVEL 216 MG/DL (<200); FERRITIN 151 NG/ML (26-388); GLOMERULAR FILTRATION RATE > 60.0 (>56); GLUCOSE, FASTING 87 MG/DL (70-105); MAGNESIUM LEVEL 2.1 MG/DL (1.8-2.4); PERCENT SATURATION 23.3 % (19.7-50.0); POTASSIUM SERUM 4.4 MEQ/L (3.5-5.1); SODIUM LEVEL 143 MEQ/L (136-145); TOTAL IRON BINDING CAPACITY 331 UG/DL (250-450); TOTAL PROTEIN 6.8 GM/DL (6.4-8.2); TRIGLYCERIDES LEVEL 292 MG/DL (<150); URIC ACID 7.2 MG/DL (3.5-7.2)
== END ==
LOC: M SFHCPLAZ 10:36
PROVIDERS: ATTEND Family Medicine
DX: I10 Essential (primary) hypertension (principal); E78.5 Hyperlipidemia, unspecified; N41.1 Chronic prostatitis; E55.9 Vitamin D deficiency, unspecified; N20.0 Calculus of kidney

== ENCOUNTER → 2018-05-17 | Outpatient (REF) | payer BC ==
[2018-05-17 10:38] LABS: BASO % 0.6 % (0.0-1.0); EOS # 0.1 10^3/uL (0.0-0.50); EOS % 1.4 % (0.0-3.0); HEMOGLOBIN 14.9 g/dl (13.5-17.5); IMMATURE GRANULOCYTE % 0.4 % (0-3.0); LYMPH # 1.9 10^3/uL (1.5-4.5); LYMPH % 26.1 % (24.0-44.0); MEAN CORPUSCULAR HEMOGLOBIN 28.8 pg (27.0-33.0); MEAN CORPUSCULAR HGB CONC 33.1 g/dl (32.0-36.5); MEAN CORPUSCULAR VOLUME 86.9 fl (80.0-96.0); MONO # 0.4 10^3/uL (0.0-0.8); MONO % 5.3 % (0.0-5.0); NEUTROPHILS # 4.7 10^3/uL (1.8-7.7); NEUTROPHILS % 66.2 % (36.0-66.0); PLATELET COUNT, AUTOMATED 153 10^3/uL (150-450); RED BLOOD COUNT 5.18 10^6/uL (4.30-6.10); RED CELL DISTRIBUTION WIDTH 13.2 % (11.5-14.5); WHITE BLOOD COUNT 7.1 10^3/uL (4.0-10.0)
[2018-05-17 11:01] LABS: PTH INTACT 58.4 PG/ML (18.5-88.0); TOTAL 25(OH) VITAMIN D 32.7 NG/ML (30.0-100.0)
[2018-05-17 11:19] LABS: ALKALINE PHOSPHATASE 83 U/L (45-117); ALT/SGPT 29 U/L (12-78); ANION GAP 8 MEQ/L (8-16); AST/SGOT 16 U/L (7-37); BILIRUBIN,TOTAL 0.4 MG/DL (0.2-1.0); BLOOD UREA NITROGEN 13 MG/DL (7-18); CARBON DIOXIDE LEVEL 28 MEQ/L (21-32); CHLORIDE LEVEL 109 MEQ/L (98-107); CHOLESTEROL LEVEL 189 MG/DL (<200); CHOLESTEROL RISK RATIO 4.295 (<5); CREATININE FOR GFR 1.12 MG/DL (0.70-1.30); GLOMERULAR FILTRATION RATE > 60.0 (>49); GLUCOSE, FASTING 93 MG/DL (70-100); HDL CHOLESTEROL 44 MG/DL (>40); NON-HDL-C 145 MG/DL; POTASSIUM SERUM 4.5 MEQ/L (3.5-5.1); SODIUM LEVEL 145 MEQ/L (136-145); TOTAL PROTEIN 6.9 GM/DL (6.4-8.2); TRIGLYCERIDES LEVEL 155 MG/DL (<150); URIC ACID 6.6 MG/DL (3.5-7.2)
[2018-05-17 11:20] LABS: ALBUMIN 3.5 GM/DL (3.2-5.2); ALBUMIN/GLOBULIN RATIO 1.03 (1.00-1.93); FERRITIN 124 NG/ML (26-388); IRON (FE) 68 UG/DL (65-175); PSA SCREENING 3.81 NG/ML (< 4.0); TOTAL IRON BINDING CAPACITY 324 UG/DL (250-450)
== END ==
LOC: M SFHCPLAZ 08:59
DX: N41.1 Chronic prostatitis (principal); I10 Essential (primary) hypertension; E78.5 Hyperlipidemia, unspecified; E55.9 Vitamin D deficiency, unspecified; N20.0 Calculus of kidney
CPT/HCPCS: 83550

== ENCOUNTER 2018-09-20 13:44 | Emergency (ER) | payer BC ==
[~2018-09-20] VITALS: Ht 185.4 cm; Wt 109.1 kg
[~2018-09-20 13:44] MED LIST changes: +FLOM0.4C39 PO; -FLOM5CAP PO
[2018-09-20] MEDS ORDERED: ADVICAP PO (13:55)
[2018-09-20 15:14] LABS: BASO % 0.4 % (0.0-1.0); EOS # 0.1 10^3/uL (0.0-0.50); EOS % 1.6 % (0.0-3.0); HEMATOCRIT 43.6 % (42.0-52.0); HEMOGLOBIN 14.3 g/dl (13.5-17.5); LYMPH # 1.5 10^3/uL (1.5-4.5); LYMPH % 21.1 % (24.0-44.0); MEAN CORPUSCULAR HEMOGLOBIN 28.4 pg (27.0-33.0); MEAN CORPUSCULAR HGB CONC 32.8 g/dl (32.0-36.5); MEAN CORPUSCULAR VOLUME 86.7 fl (80.0-96.0); MONO # 0.4 10^3/uL (0.0-0.8); MONO % 5.2 % (0.0-5.0); NEUTROPHILS # 4.9 10^3/uL (1.8-7.7); NEUTROPHILS % 71.3 % (36.0-66.0); PLATELET COUNT, AUTOMATED 139 10^3/uL (150-450); RED BLOOD COUNT 5.03 10^6/uL (4.30-6.10); WHITE BLOOD COUNT 6.9 10^3/uL (4.0-10.0)
[2018-09-20 15:47] LABS: ALBUMIN 3.4 GM/DL (3.2-5.2); ALT/SGPT 33 U/L (12-78); BILIRUBIN,DIRECT < 0.1 MG/DL (0.0-0.2); BILIRUBIN,TOTAL 0.4 MG/DL (0.2-1.0); BLOOD UREA NITROGEN 20 MG/DL (7-18); CALCIUM LEVEL 8.5 MG/DL (8.8-10.2); CARBON DIOXIDE LEVEL 28 MEQ/L (21-32); CHLORIDE LEVEL 107 MEQ/L (98-107); CPK CREATINE PHOSPHOKINASE 205 U/L (39-308); CREATININE FOR GFR 1.02 MG/DL (0.70-1.30); GLOMERULAR FILTRATION RATE > 60.0 (>49); GLUCOSE, FASTING 89 MG/DL (70-100); MB/CK RELATIVE INDEX 1.56 (< OR =4); POTASSIUM SERUM 4.3 MEQ/L (3.5-5.1); SODIUM LEVEL 140 MEQ/L (136-145); TOTAL PROTEIN 6.6 GM/DL (6.4-8.2); TROPONIN I < 0.02 NG/ML (< 0.10)
--- NOTE | 2018-09-20 16:26 | ECGEPIP ---
Stationary ECG Study [facility] - ED Test Date: 2018-09-20 Pat Name: MARIA ESTHER MCMAHON Department: Room: - Gender: M Sales Marketing: VIGNESH : 1955 Requested By: Joseph Bray Order Number: [id number] Reading MD: Joy Linares Measurements Intervals [place] Rate: 70 P: 58 MT: 191 QRS: -20 QRSD: 128 T: 27 QT: 393 QTc: 425 Interpretive Statements SINUS RHYTHM POSSIBLE RIGHT VENTRICULAR CONDUCTION DELAY SIMILAR 06/02/15 Electronically Signed On 09-20-2018 16:26:29 EST by Joy Linares
--- NOTE | 2018-09-20 16:30 | REP ---
CT Head without contrast HISTORY: Dizziness COMPARISON: None There is no intraparenchymal hemorrhage, acute infarct, mass or midline shift. The ventricular system and cortical sulci are dilated consistent with minimal volume loss. There is no extra cerebral collection. There is no fracture. The visualized sinuses are clear. IMPRESSION: Minimal volume loss. Electronically Signed by Justin Ayala MD 09/20/2018 04:21 P
[2018-09-20] MEDS ORDERED: MECL-68 PO (16:52)
[2018-09-20 17:00] VITALS: BP 160/80
== END 2018-09-20 17:17 | disposition home or self-care (01) ==
LOC: M ED 13:44
DX: H83.09 Labyrinthitis, unspecified ear (principal); I10 Essential (primary) hypertension; E78.5 Hyperlipidemia, unspecified; F17.210 Nicotine dependence, cigarettes, uncomplicated

== ENCOUNTER → 2018-10-24 | Outpatient (CLI) | payer BC ==
[~2018-10-24] MED LIST changes: +ADVICAP PO; +MECL-68 PO
--- NOTE | 2018-10-25 07:51 | REP ---
Clinical: Nephrolithiasis. Technique: Axial noncontrast images from the lung bases to the pubic symphysis with coronal and sagittal re-formations. Comparison: 12/22/2016. Findings: Evaluation of the urinary tract system demonstrates mild symmetric chronic-appearing perinephric stranding without hydroureteronephrosis, intrarenal or obstructing ureteral calculi. There is a 2 mm calculus within the right posterior dependent portion of the bladder consistent with previously passed stone as well as a very subtle dilatation to the distal left ureter which measures approximately 13 mm maximal diameter and unchanged from prior examination. Liver, spleen, pancreas, gallbladder, and bilateral adrenal glands are normal / stable. The left adrenal gland again demonstrates two small benign appearing adenomas measuring approximately 1.5 and 2.0 cm maximal diameter. The enteric system is without obstruction or acute inflammatory process. Normal terminal ileum and appendix are identified in the right lower quadrant. Few scattered sigmoid diverticula noted without acute diverticulitis. Pelvis demonstrates moderately enlarged prostate gland measuring approximately 5.4 cm maximal diameter as well as bilateral fat containing inguinal hernias. No ascites. No free air. No adenopathy. Atherosclerotic changes to the aorta and vasculature without aneurysm. Musculoskeletal structures intact. Lung bases are clear. Impression: 1. Urinary tract system includes 2 mm bladder calculus and no evidence for hydroureteronephrosis or nephroureterolithiasis. 2. Stable benign left adrenal adenoma as. 3. Small fat containing bilateral inguinal hernias. 4. Moderately prominent prostate gland. 5. Sigmoid diverticula without acute diverticulitis. Electronically Signed by Norbert Valle MD 10/25/2018 07:42 A
== END ==
LOC: M RAD 17:53
PROVIDERS: ATTEND Physician Assistant Medical
DX: N21.0 Calculus in bladder (principal); K40.90 Unilateral inguinal hernia, without obstruction or gangrene, not specified as recurrent; K57.30 Diverticulosis of large intestine without perforation or abscess without bleeding; N20.0 Calculus of kidney; R35.0 Frequency of micturition

== ENCOUNTER → 2019-08-17 | Outpatient (REF) | payer BC ==
[2019-08-17 11:53] LABS: BASO # 0.1 10^3/uL (0.0-0.2); BASO % 0.6 % (0.0-1.0); EOS # 0.2 10^3/uL (0.0-0.5); EOS % 2.1 % (0.0-3.0); HEMATOCRIT 48.9 % (42.0-52.0); HEMOGLOBIN 15.6 g/dl (13.5-17.5); LYMPH # 2.1 10^3/uL (1.5-5.0); LYMPH % 25.6 % (24.0-44.0); MEAN CORPUSCULAR HEMOGLOBIN 28.3 pg (27.0-33.0); MEAN CORPUSCULAR HGB CONC 31.9 g/dl (32.0-36.5); MEAN CORPUSCULAR VOLUME 88.7 fl (80.0-96.0); MONO # 0.6 10^3/uL (0.0-0.8); MONO % 6.7 % (0.0-5.0); NEUTROPHILS # 5.3 10^3/uL (1.5-8.5); NEUTROPHILS % 64.5 % (36.0-66.0); PLATELET COUNT, AUTOMATED 163 10^3/uL (150-450); RED BLOOD COUNT 5.51 10^6/uL (4.30-6.10); WHITE BLOOD COUNT 8.2 10^3/uL (4.0-10.0)
[2019-08-17 12:12] LABS: HEMOGLOBIN A1c 5.6 %
[2019-08-17 12:35] LABS: ALBUMIN 3.9 GM/DL (3.2-5.2); ALT/SGPT 45 U/L (12-78); BILIRUBIN,TOTAL 0.6 MG/DL (0.2-1.0); BLOOD UREA NITROGEN 14 MG/DL (7-18); C REACTIVE PROTEIN QUANTITATIV < 0.30 MG/DL (0.00-0.30); CALCIUM LEVEL 9.6 MG/DL (8.8-10.2); CARBON DIOXIDE LEVEL 30 MEQ/L (21-32); CHLORIDE LEVEL 105 MEQ/L (98-107); CHOLESTEROL LEVEL 196 MG/DL (<200); CHOLESTEROL RISK RATIO 3.769 (<5); CPK CREATINE PHOSPHOKINASE 194 U/L (39-308); FREE T4 0.95 NG/DL (0.76-1.46); GLOMERULAR FILTRATION RATE > 60.0 (>49); GLUCOSE, FASTING 83 MG/DL (70-100); HDL CHOLESTEROL 52 MG/DL (>40); LDL CHOLESTEROL 102 MG/DL (<100); NON-HDL-C 144 MG/DL; POTASSIUM SERUM 4.4 MEQ/L (3.5-5.1); SODIUM LEVEL 140 MEQ/L (136-145); TRIGLYCERIDES LEVEL 212 MG/DL (<150)
== END ==
LOC: M SFHCPLAZ 10:34
PROVIDERS: ATTEND Family Medicine
DX: I10 Essential (primary) hypertension (principal); Z12.5 Encounter for screening for malignant neoplasm of prostate; E78.5 Hyperlipidemia, unspecified; E53.8 Deficiency of other specified B group vitamins

== ENCOUNTER → 2019-09-05 | Outpatient (CLI) | payer BC ==
--- NOTE | 2019-09-05 09:01 | REP ---
Clinical: Lung screening. History smoking. Comparison: 10/26/2013 Technique: Axial low-dose noncontrast images from the thoracic inlet to the upper abdomen using lung screening technique. Findings: The lung sanchez are well-aerated minimal scattered chronic changes remain stable. No consolidation, significant nodule or mass lesion is appreciated. No pleural effusion/reaction or pneumothorax. Tracheobronchial tree is patent. Mediastinum demonstrates mild atherosclerotic changes of the coronary arteries without cardiomegaly. Impression: Lung-RADS category II. No nodule or suspicious abnormality. Management recommendations include annual low-dose CT evaluation. Electronically Signed by Norbert Valle MD 09/05/2019 08:52 A
== END ==
LOC: M RAD 08:05
PROVIDERS: ATTEND Family Medicine
DX: Z12.2 Encounter for screening for malignant neoplasm of respiratory organs (principal); F17.200 Nicotine dependence, unspecified, uncomplicated

== ENCOUNTER → 2019-10-20 | Outpatient (REF) | payer BC ==
[~2019-10-20] MED LIST changes: -MECL-68 PO; +MECL1TAB31 PO
== END ==
LOC: M SFHCPLAZ 15:42
PROVIDERS: ATTEND Nurse Practitioner Family
DX: R97.20 Elevated prostate specific antigen [PSA] (principal)

== ENCOUNTER → 2020-02-22 | Outpatient (CLI) | payer BC ==
[~2020-02-22] MED LIST changes: +IRBE75TA4 PO; -IRBE75TA5 PO; +PROHANCE 279.3MG/ML 15ML VIAL As Ordered ONE; +PROHANCE 279.3MG/ML 5ML VIAL As Ordered ONE
== END ==
LOC: M RAD 08:23
PROVIDERS: ATTEND Family Medicine
DX: Z53.9 Procedure and treatment not carried out, unspecified reason (principal)
CPT/HCPCS: A9576 ×2

== ENCOUNTER → 2021-02-06 | Outpatient (CLI) | payer BC ==
[~2021-02-06] MED LIST changes: +ASPI-569 PO; -ASPI81TAEC PO; -PROHANCE 279.3MG/ML 15ML VIAL As Ordered ONE; -PROHANCE 279.3MG/ML 5ML VIAL As Ordered ONE
[2021-02-06 07:58] LABS: BASO # 0.1 10^3/uL (0.0-0.2); BASO % 0.9 % (0.0-1.0); EOS # 0.2 10^3/uL (0.0-0.5); EOS % 3.4 % (0.0-3.0); HEMATOCRIT 44.9 % (42.0-52.0); HEMOGLOBIN 14.5 g/dl (13.5-17.5); LYMPH # 1.8 10^3/uL (1.5-5.0); LYMPH % 25.7 % (24.0-44.0); MEAN CORPUSCULAR HEMOGLOBIN 28.2 pg (27.0-33.0); MEAN CORPUSCULAR HGB CONC 32.3 g/dl (32.0-36.5); MEAN CORPUSCULAR VOLUME 87.2 fl (80.0-96.0); MONO # 0.5 10^3/uL (0.0-0.8); MONO % 6.8 % (2.0-8.0); NEUTROPHILS # 4.4 10^3/uL (1.5-8.5); NEUTROPHILS % 62.9 % (36.0-66.0); PLATELET COUNT, AUTOMATED 145 10^3/uL (150-450); RED BLOOD COUNT 5.15 10^6/uL (4.30-6.10)
[2021-02-06 08:22] LABS: ALBUMIN 3.6 GM/DL (3.2-5.2); ALT/SGPT 33 U/L (12-78); BILIRUBIN,TOTAL 0.5 MG/DL (0.2-1.0); BLOOD UREA NITROGEN 22 MG/DL (7-18); CARBON DIOXIDE LEVEL 28 MEQ/L (21-32); CHLORIDE LEVEL 108 MEQ/L (98-107); CHOLESTEROL LEVEL 205 MG/DL (<200); CHOLESTEROL RISK RATIO 3.727 (<5); CREATININE FOR GFR 1.05 MG/DL (0.70-1.30); FERRITIN 202 NG/ML (26-388); GLOMERULAR FILTRATION RATE > 60.0 (>49); GLUCOSE, FASTING 101 MG/DL (70-100); HDL CHOLESTEROL 55 MG/DL (>40); LDL CHOLESTEROL 117 MG/DL (<100); NON-HDL-C 150 MG/DL; POTASSIUM SERUM 4.3 MEQ/L (3.5-5.1); PROSTATIC SPECIFIC AG MONITOR 5.25 NG/ML (< 4.00); SODIUM LEVEL 140 MEQ/L (136-145); TOTAL PROTEIN 6.8 GM/DL (6.4-8.2); TRIGLYCERIDES LEVEL 167 MG/DL (<150)
[2021-02-06 08:33] LABS: MALB URINE SIEMENS 14.5 MG/L; MAU/CREAT RATIO 6.8 MCG/MG (0.0-30.0)
[2021-02-06 08:58] LABS: HEMOGLOBIN A1c 5.3 %
[2021-02-06 13:29] LABS: PTH INTACT 49.4 PG/ML (18.5-88.0); TOTAL 25(OH) VITAMIN D 53.2 NG/ML (30.0-100.0)
[2021-02-06 13:30] LABS: VITAMIN B12 LEVEL > 2000 PG/ML (247-911)
== END ==
LOC: M LAB 07:16
PROVIDERS: ATTEND Family Medicine
DX: I10 Essential (primary) hypertension (principal); E53.8 Deficiency of other specified B group vitamins; R73.01 Impaired fasting glucose; E55.9 Vitamin D deficiency, unspecified; R97.20 Elevated prostate specific antigen [PSA]; E78.5 Hyperlipidemia, unspecified

== ENCOUNTER → 2021-02-26 | Outpatient (CLI) | payer BC ==
--- NOTE | 2021-02-27 07:05 | REP ---
INDICATION: V COMPARISON: 09/05/2019 TECHNIQUE: Axial noncontrast images from the thoracic inlet to the upper abdomen using low-dose lung screening technique (LDCT). FINDINGS: Bilateral lung sanchez are well aerated with minimal scattered chronic changes again noted and stable. No consolidation, significant nodule or mass lesion. No pleural effusion. No pneumothorax. Tracheobronchial tree is patent. Small hiatal hernia suggested at the gastroesophageal junction. IMPRESSION: Lung-RADS category 2. Stable chronic changes. Management recommendations include annual low-dose CT surveillance. <Electronically signed by Norbert Valle > 02/27/21 [id number]
== END ==
LOC: M RAD 10:45
PROVIDERS: ATTEND Family Medicine
DX: Z12.2 Encounter for screening for malignant neoplasm of respiratory organs (principal)

== ENCOUNTER → 2021-03-18 | Outpatient (CLI) | payer BC ==
[~2021-03-18] MED LIST changes: +PROHANCE 279.3MG/ML 15ML VIAL As Ordered ONE; +PROHANCE 279.3MG/ML 5ML VIAL As Ordered ONE
--- NOTE | 2021-03-18 17:11 | REP ---
INDICATION: ELEVATED PSA ATTN PROSTATE. COMPARISON: 01/11/2017. TECHNIQUE: Using a phased array surface coil, small qviov-og-yxno imaging was acquired using T2 weighted scans in the axial, coronal, and sagittal imaging planes. Small vuiby-oy-gqda diffusion-weighted sequences are acquired. Small rshdb-kk-gbmp axial T1 weighted scans are acquired dynamically before and after the intravenous administration of 12 mL of ProHance. Imaging is reviewed using the [employer] computer-aided detection system. FINDINGS: The prostate is enlarged. The prostate measures 5.6 x 4.9 x 5.4 cm. Total volume is 71.77 cc. Nodular areas of mixed signal are seen throughout the central zone and transitional zone. No adenopathy is seen in the pelvis. No free fluid is seen. No discrete bone lesion is seen. Two areas of interest are identified in the prostate for potential ultrasound fusion biopsy. In the left transitional zone extending from the base to the apex there is an area of ill-defined predominantly low signal on T2 and diffusion-weighted images. This area measures 3.5 x 0.6 x 3.8 cm for total volume of 9.1 cc. The area of the demonstrates predominantly type 3 washout enhancement. The overall level of suspicion is 3/5, equivocal for the presence of clinically significant cancer. Secondly in the right transitional zone extending from the base to the apex is a similar appearing ill-defined area of predominantly low signal on T2 and diffusion-weighted images. There is predominately type 3 enhancement. The area measures 3.1 x 1.7 x 3.1 cm for total volume of 9.15 cc. The overall level of suspicion is 3/5 with clinically significant cancer equivocal. There are [id number] bilateral inguinal hernias containing fat. There is sigmoid diverticulosis. There is a diverticulum at the left base of the bladder. IMPRESSION: Enlarged prostate. Nonspecific regions of interest on both sides of the prostate as discussed in detail above identified for potential ultrasound fusion biopsy. The overall level of suspicion for both areas is 3/5 with clinically significant cancer equivocal. <Electronically signed by Da Gilman > 03/18/21 [id number]
== END ==
LOC: M RAD 14:32
PROVIDERS: ATTEND Family Medicine
DX: R97.20 Elevated prostate specific antigen [PSA] (principal); N40.0 Benign prostatic hyperplasia without lower urinary tract symptoms
CPT/HCPCS: 72197; A9576

== ENCOUNTER 2021-05-18 01:24 | Emergency (ER) | payer BC ==
[~2021-05-18] VITALS: Ht 185.4 cm; Wt 100.8 kg
[~2021-05-18 01:24] MED LIST changes: -PROHANCE 279.3MG/ML 15ML VIAL As Ordered ONE; -PROHANCE 279.3MG/ML 5ML VIAL As Ordered ONE
[2021-05-18 01:25] VITALS: BP 142/86
[2021-05-18] MEDS ORDERED: FLOM0.4C39 PO (01:34)
--- NOTE | 2021-05-18 03:25 | REPVR ---
PROCEDURE INFORMATION: Exam: XR Left Wrist Exam date and time: 05/18/21 (1:38am) Age: 65 years old Clinical indication: Tripped and fell TECHNIQUE: Imaging protocol: XR Left wrist Views: 3 or more views COMPARISON: No relevant prior studies available FINDINGS: No acute fracture nor dislocation. Diffuse osteopenia. Chondrocalcinosis changes at the radiocarpal joint. IMPRESSION: No acute findings. Electronically signed by: Rose Marie Ornelas On 05/18/2021 03:24:55 AM
== END 2021-05-18 04:46 | disposition left against medical advice (07) ==
LOC: M ED 01:24
DX: Z53.21 Procedure and treatment not carried out due to patient leaving prior to being seen by health care provider (principal)

== ENCOUNTER → 2021-05-27 | Outpatient (CLI) | payer BC ==
[2021-05-27 15:15] LABS: APPEARANCE, URINE CLOUDY (CLEAR); BACTERIA, URINE AUTO NEGATIVE (NEGATIVE); BILIRUBIN, URINE AUTO NEGATIVE (NEGATIVE); BLOOD, URINE BLOOD NEGATIVE (NEGATIVE); COLOR, URINE AMBER (YELLOW); GLUCOSE, URINE (UA) AUTO NEGATIVE (NEGATIVE); KETONE, URINE AUTO NEGATIVE (NEGATIVE); LEUKOCYTE ESTERASE, URINE AUTO NEGATIVE (NEGATIVE); MUCUS, URINE SMALL (NEGATIVE); NITRITE, URINE AUTO NEGATIVE (NEGATIVE); PROTEIN, URINE AUTO NEGATIVE (NEGATIVE); RBC, URINE AUTO 0 /HPF (0-3); SQUAMOUS EPITHELIAL CELL UR AU 0 /HPF (0-6); UROBILINOGEN, URINE AUTO 0.2 mg/dL (0.0-2.0); WBC, URINE AUTO 1 /HPF (0-3)
[2021-05-27 15:19] LABS: BASO # 0.1 10^3/uL (0.0-0.2); BASO % 0.6 % (0.0-1.0); EOS # 0.2 10^3/uL (0.0-0.5); EOS % 2.6 % (0.0-3.0); HEMATOCRIT 45.4 % (42.0-52.0); HEMOGLOBIN 14.6 g/dl (13.5-17.5); LYMPH # 1.9 10^3/uL (1.5-5.0); LYMPH % 24.9 % (24.0-44.0); MEAN CORPUSCULAR HEMOGLOBIN 28.2 pg (27.0-33.0); MEAN CORPUSCULAR HGB CONC 32.2 g/dl (32.0-36.5); MEAN CORPUSCULAR VOLUME 87.6 fl (80.0-96.0); MONO # 0.5 10^3/uL (0.0-0.8); MONO % 5.8 % (2.0-8.0); NEUTROPHILS # 5.1 10^3/uL (1.5-8.5); NEUTROPHILS % 65.6 % (36.0-66.0); PLATELET COUNT, AUTOMATED 164 10^3/uL (150-450); RED BLOOD COUNT 5.18 10^6/uL (4.30-6.10); WHITE BLOOD COUNT 7.8 10^3/uL (4.0-10.0)
[2021-05-27 15:28] LABS: INR 0.95
[2021-05-27 15:29] LABS: PARTIAL THROMBOPLASTIN TIME 30.8 SECONDS (25.9-37.0)
[2021-05-27 15:39] LABS: HEMOGLOBIN A1c 5.5 %
[2021-05-27 15:54] LABS: ALBUMIN 3.7 GM/DL (3.2-5.2); ALT/SGPT 38 U/L (12-78); BILIRUBIN,TOTAL 0.3 MG/DL (0.2-1.0); BLOOD UREA NITROGEN 21 MG/DL (7-18); CALCIUM LEVEL 9.3 MG/DL (8.8-10.2); CARBON DIOXIDE LEVEL 26 MEQ/L (21-32); CHLORIDE LEVEL 109 MEQ/L (98-107); CHOLESTEROL LEVEL 190 MG/DL (<200); CPK CREATINE PHOSPHOKINASE 283 U/L (39-308); CREATININE FOR GFR 0.96 MG/DL (0.70-1.30); FREE T4 0.89 NG/DL (0.76-1.46); GLOMERULAR FILTRATION RATE > 60.0 (>49); GLUCOSE, FASTING 104 MG/DL (70-100); HDL CHOLESTEROL 50 MG/DL (>40); LDL CHOLESTEROL 87 MG/DL (<100); NON-HDL-C 140 MG/DL; NT-PRO BNP 12 PG/ML (<125); POTASSIUM SERUM 4.4 MEQ/L (3.5-5.1); SODIUM LEVEL 140 MEQ/L (136-145); THYROID STIMULATING HORMONE 0.999 uIU/ML (0.358-3.740); TOTAL PROTEIN 6.7 GM/DL (6.4-8.2); TRIGLYCERIDES LEVEL 266 MG/DL (<150)
== END ==
LOC: M PLALAB 11:48
PROVIDERS: ATTEND Family Medicine
DX: Z01.818 Encounter for other preprocedural examination (principal); I10 Essential (primary) hypertension

== ENCOUNTER → 2021-08-02 | Outpatient (CLI) | payer BC | LOC: M LAB 08:05 | PROVIDERS: ATTEND Urology | DX: R97.20 Elevated prostate specific antigen [PSA] (principal) ==

== ENCOUNTER → 2021-10-25 | Outpatient (CLI) | payer BC | LOC: M LAB 08:22 | PROVIDERS: ATTEND Urology | DX: R97.20 Elevated prostate specific antigen [PSA] (principal) ==

== ENCOUNTER → 2022-03-04 | Outpatient (CLI) | payer OTHER ==
[2022-03-04 10:23] LABS: BASO % 0.5 % (0.0-1.0); EOS # 0.1 10^3/uL (0.0-0.5); HEMATOCRIT 42.3 % (42.0-52.0); HEMOGLOBIN 13.8 g/dl (13.5-17.5); LYMPH # 1.5 10^3/uL (1.5-5.0); LYMPH % 22.7 % (24.0-44.0); MEAN CORPUSCULAR HEMOGLOBIN 28.2 pg (27.0-33.0); MEAN CORPUSCULAR HGB CONC 32.6 g/dl (32.0-36.5); MEAN CORPUSCULAR VOLUME 86.3 fl (80.0-96.0); MONO # 0.5 10^3/uL (0.0-0.8); MONO % 7.3 % (2.0-8.0); NEUTROPHILS # 4.5 10^3/uL (1.5-8.5); PLATELET COUNT, AUTOMATED 170 10^3/uL (150-450); WHITE BLOOD COUNT 6.6 10^3/uL (4.0-10.0)
[2022-03-04 10:28] LABS: ALBUMIN 3.4 GM/DL (3.2-5.2); ALT/SGPT 35 U/L (12-78); BILIRUBIN,TOTAL 0.4 MG/DL (0.2-1.0); BLOOD UREA NITROGEN 14 MG/DL (7-18); CALCIUM LEVEL 9.5 MG/DL (8.8-10.2); CARBON DIOXIDE LEVEL 29 MEQ/L (21-32); CHLORIDE LEVEL 108 MEQ/L (98-107); CHOLESTEROL LEVEL 196 MG/DL (<200); GLOMERULAR FILTRATION RATE > 60.0 (>49); GLUCOSE, FASTING 107 MG/DL (70-100); HDL CHOLESTEROL 47 MG/DL (>40); LDL CHOLESTEROL 118 MG/DL (<100); NON-HDL-C 149 MG/DL; POTASSIUM SERUM 4.4 MEQ/L (3.5-5.1); SODIUM LEVEL 142 MEQ/L (136-145); TOTAL PROTEIN 6.5 GM/DL (6.4-8.2); TRIGLYCERIDES LEVEL 156 MG/DL (<150)
[2022-03-04 11:26] LABS: HEMOGLOBIN A1c 5.6 %
== END ==
LOC: M PLALAB 07:57
PROVIDERS: ATTEND Physician Assistant
DX: R19.4 Change in bowel habit (principal); I10 Essential (primary) hypertension

== ENCOUNTER → 2022-12-18 | Outpatient (REF) | payer MEDICARE | LOC: M LABWUC 09:13 | PROVIDERS: ATTEND Urology | DX: R97.20 Elevated prostate specific antigen [PSA] (principal) ==

== ENCOUNTER → 2023-01-06 | Outpatient (CLI) | payer MEDICARE ==
[2023-01-06 09:40] LABS: BASO % 0.4 % (0.0-1.0); EOS # 0.1 10^3/uL (0.0-0.5); EOS % 1.9 % (0.0-3.0); HEMOGLOBIN 14.6 g/dl (13.5-17.5); LYMPH % 27.8 % (24.0-44.0); MEAN CORPUSCULAR HEMOGLOBIN 27.7 pg (27.0-33.0); MEAN CORPUSCULAR HGB CONC 31.7 g/dl (32.0-36.5); MEAN CORPUSCULAR VOLUME 87.3 fl (80.0-96.0); MONO # 0.5 10^3/uL (0.0-0.8); MONO % 6.8 % (2.0-8.0); NEUTROPHILS # 4.5 10^3/uL (1.5-8.5); NEUTROPHILS % 62.7 % (36.0-66.0); PLATELET COUNT, AUTOMATED 155 10^3/uL (150-450); RED BLOOD COUNT 5.27 10^6/uL (4.30-6.10); WHITE BLOOD COUNT 7.2 10^3/uL (4.0-10.0)
[2023-01-06 10:03] LABS: HEMOGLOBIN A1c 5.5 % (4.0-6.0)
[2023-01-06 10:07] LABS: ALBUMIN 3.7 G/DL (3.2-5.2); ALKALINE PHOSPHATASE 74 U/L (46-116); ALT/SGPT 29 U/L (7.0-40); AST/SGOT 19 U/L (<34); BILIRUBIN,TOTAL 0.5 MG/DL (0.3-1.2); BLOOD UREA NITROGEN 20 MG/DL (9-23); CALCIUM LEVEL 9.6 MG/DL (8.3-10.6); CARBON DIOXIDE LEVEL 31 MMOL/L (20-31); CHLORIDE LEVEL 104 MMOL/L (98-107); CHOLESTEROL LEVEL 183 MG/DL (<200); CHOLESTEROL RISK RATIO 3.75 (<5); CREATININE FOR GFR 1.04 MG/DL (0.70-1.30); FREE T4 1.03 NG/DL (0.89-1.76); GLOMERULAR FILTRATION RATE > 60.0 (>49); GLUCOSE, FASTING 94 MG/DL (74-106); HDL CHOLESTEROL 48.7 MG/DL (>40); LDL CHOLESTEROL 106.3 MG/DL (<100); NON-HDL-C 134.3 MG/DL; POTASSIUM SERUM 4.1 MMOL/L (3.5-5.1); SODIUM LEVEL 138 MMOL/L (136-145); TOTAL PROTEIN 6.6 G/DL (5.7-8.2); TRIGLYCERIDES LEVEL 140 MG/DL (<150); VITAMIN B12 LEVEL 408 PG/ML (211-911)
[2023-01-06 10:08] LABS: FERRITIN 130.9 NG/ML (10.5-307.3); THYROID STIMULATING HORMONE 1.449 uIU/ML (0.55-4.78); TOTAL 25(OH) VITAMIN D 50.2 NG/ML (20.0-100.0)
[2023-01-06 10:28] LABS: PTH INTACT 40.6 PG/ML (18.5-88.0)
[2023-01-08 02:07] LABS: INSULIN LEVEL 17.8 uIU/mL (2.6-24.9)
== END ==
LOC: M WUC 08:08
PROVIDERS: ATTEND Family Medicine
DX: I10 Essential (primary) hypertension (principal); E53.8 Deficiency of other specified B group vitamins; R73.01 Impaired fasting glucose; E78.5 Hyperlipidemia, unspecified; D69.6 Thrombocytopenia, unspecified; E55.9 Vitamin D deficiency, unspecified

== ENCOUNTER 2023-04-28 08:54 | Day surgery (SDC) | payer MEDICARE ==
[~2023-04-28] VITALS: Ht 185.4 cm; Wt 110.1 kg
[~2023-04-28 08:54] MED LIST changes: +ALEV220T22 PO; +DOCU-153 PO; +IRBE150T14 PO; +IRBE150T7 PO; +NS 1,000 ML IV ONE; +OMEG10002 PO; +OMEP40CA5 PO; +TAMS1CAP17 PO; +VITA100C15 PO
[2023-04-28] MEDS ORDERED: LIDOCAINE 2% 100MG/5ML SDV (FOR ANES.) As Ordered ONE (10:26)
[2023-04-28] MEDS ORDERED: propofoL 500 MG/50 ML VIAL As Ordered ONE (10:26)
[2023-04-28 10:47] VITALS: TEMP 96.3
[2023-04-28 10:58] VITALS: BP 122/67; O2SAT 94
== END 2023-04-28 11:05 | disposition home or self-care (01) ==
LOC: M OPP 08:54
PROVIDERS: ATTEND Internal Medicine Gastroenterology
DX: Z86.010 Personal history of colon polyps (principal); D12.6 Benign neoplasm of colon, unspecified; K64.0 First degree hemorrhoids; K57.30 Diverticulosis of large intestine without perforation or abscess without bleeding; Z79.02 Long term (current) use of antithrombotics/antiplatelets; Z79.82 Long term (current) use of aspirin

== ENCOUNTER → 2023-07-26 | Outpatient (REF) | payer MEDICARE ==
[~2023-07-26] MED LIST changes: +MECL-209 PO; -MECL1TAB31 PO; -NS 1,000 ML IV ONE
== END ==
LOC: M SFHCPLAZ 16:33
PROVIDERS: ATTEND Family Medicine
DX: K76.0 Fatty (change of) liver, not elsewhere classified (principal); R73.01 Impaired fasting glucose; I10 Essential (primary) hypertension

== ENCOUNTER → 2023-12-21 | Outpatient (CLI) | payer OTHER ==
[~2023-12-21] MED LIST changes: -DOCU-153 PO; +IRBE150T27 PO; -IRBE150T7 PO; +IRBE75TA11 PO; -IRBE75TA4 PO; +STOO100C30 PO
== END ==
LOC: M WUC 08:10
PROVIDERS: ATTEND Urology
DX: R97.20 Elevated prostate specific antigen [PSA] (principal)

== ENCOUNTER → 2024-02-08 | Outpatient (CLI) | payer OTHER ==
[2024-02-08 11:46] LABS: BASO % 0.5 % (0.0-1.0); EOS # 0.2 10^3/uL (0.0-0.5); HEMATOCRIT 46.2 % (42.0-52.0); HEMOGLOBIN 15.1 g/dl (13.5-17.5); LYMPH # 1.8 10^3/uL (1.5-5.0); LYMPH % 24.3 % (24.0-44.0); MEAN CORPUSCULAR HEMOGLOBIN 28.5 pg (27.0-33.0); MEAN CORPUSCULAR HGB CONC 32.7 g/dl (32.0-36.5); MEAN CORPUSCULAR VOLUME 87.3 fl (80.0-96.0); MONO # 0.4 10^3/uL (0.0-0.8); MONO % 5.8 % (2.0-8.0); NEUTROPHILS % 67.1 % (36.0-66.0); PLATELET COUNT, AUTOMATED 154 10^3/uL (150-450); RED BLOOD COUNT 5.29 10^6/uL (4.30-6.10); WHITE BLOOD COUNT 7.4 10^3/uL (4.0-10.0)
[2024-02-08 11:59] LABS: ALBUMIN 3.4 G/DL (3.2-5.2); ALKALINE PHOSPHATASE 70 U/L (46-116); ALT/SGPT 27 U/L (7.0-40); AST/SGOT 18 U/L (<34); BILIRUBIN,TOTAL 0.5 MG/DL (0.3-1.2); BLOOD UREA NITROGEN 17 MG/DL (9-23); CALCIUM LEVEL 9.3 MG/DL (8.3-10.6); CARBON DIOXIDE LEVEL 30 MMOL/L (20-31); CHLORIDE LEVEL 106 MMOL/L (98-107); CHOLESTEROL LEVEL 189 MG/DL (<200); CHOLESTEROL RISK RATIO 3.76 (<5); CREATININE FOR GFR 1.09 MG/DL (0.70-1.30); FERRITIN 88.1 NG/ML (10.5-307.3); GLOMERULAR FILTRATION RATE > 60.0 (>49); GLUCOSE, FASTING 99 MG/DL (74-106); HDL CHOLESTEROL 50.2 MG/DL (>40); NON-HDL-C 138.8 MG/DL; POTASSIUM SERUM 4.5 MMOL/L (3.5-5.1); SODIUM LEVEL 141 MMOL/L (136-145); TOTAL PROTEIN 6.5 G/DL (5.7-8.2); TRIGLYCERIDES LEVEL 174 MG/DL (<150); VITAMIN B12 LEVEL 262 PG/ML (211-911)
[2024-02-08 12:07] LABS: HEMOGLOBIN A1c 5.4 % (4.0-6.0)
[2024-02-08 12:18] LABS: CREATININE, URINE 145.7 MG/DL
[2024-02-08 12:19] LABS: MAU/CREAT RATIO 6.8 MCG/MG (0.0-30.0)
== END ==
LOC: M WUC 09:24
PROVIDERS: ATTEND Family Medicine
DX: R73.01 Impaired fasting glucose (principal); E53.8 Deficiency of other specified B group vitamins; I10 Essential (primary) hypertension; Z86.39 Personal history of other endocrine, nutritional and metabolic disease

== ENCOUNTER → 2024-07-13 | Outpatient (CLI) | payer OTHER | LOC: M RAD 07:06 | PROVIDERS: ATTEND Family Medicine | DX: Z12.2 Encounter for screening for malignant neoplasm of respiratory organs (principal); Z87.891 Personal history of nicotine dependence ==

== ENCOUNTER → 2024-08-30 | Outpatient (CLI) | payer OTHER ==
[2024-08-30 08:15] LABS: BASO # 0.1 10^3/uL (0.0-0.2); BASO % 0.8 % (0.0-1.0); EOS # 0.2 10^3/uL (0.0-0.5); EOS % 3.1 % (0.0-3.0); HEMATOCRIT 44.9 % (42.0-52.0); HEMOGLOBIN 14.5 g/dl (13.5-17.5); LYMPH # 1.5 10^3/uL (1.5-5.0); LYMPH % 23.1 % (24.0-44.0); MEAN CORPUSCULAR HEMOGLOBIN 27.9 pg (27.0-33.0); MEAN CORPUSCULAR HGB CONC 32.3 g/dl (32.0-36.5); MEAN CORPUSCULAR VOLUME 86.3 fl (80.0-96.0); MONO # 0.4 10^3/uL (0.0-0.8); MONO % 6.4 % (2.0-8.0); NEUTROPHILS # 4.3 10^3/uL (1.5-8.5); NEUTROPHILS % 66.4 % (36.0-66.0); PLATELET COUNT, AUTOMATED 149 10^3/uL (150-450); WHITE BLOOD COUNT 6.4 10^3/uL (4.0-10.0)
[2024-08-30 08:36] LABS: HEMOGLOBIN A1c 5.5 % (4.0-6.0)
[2024-08-30 09:36] LABS: ALBUMIN 3.5 G/DL (3.2-5.2); ALKALINE PHOSPHATASE 80 U/L (40-129); ALT/SGPT 35 U/L (7.0-40); AST/SGOT 17 U/L (<34); BILIRUBIN,TOTAL 0.5 MG/DL (0.3-1.2); BLOOD UREA NITROGEN 24 MG/DL (9-23); CALCIUM LEVEL 9.4 MG/DL (8.3-10.6); CARBON DIOXIDE LEVEL 27 MMOL/L (20-31); CHLORIDE LEVEL 106 MMOL/L (98-107); CREATININE FOR GFR 1.08 MG/DL (0.70-1.30); FERRITIN 99.1 NG/ML (10.5-307.3); GLOMERULAR FILTRATION RATE > 60.0 (>49); GLUCOSE, FASTING 93 MG/DL (74-106); POTASSIUM SERUM 4.3 MMOL/L (3.5-5.1); SODIUM LEVEL 139 MMOL/L (136-145); TOTAL PROTEIN 6.8 G/DL (5.7-8.2); VITAMIN B12 LEVEL 407 PG/ML (211-911)
== END ==
LOC: M LAB 06:59
PROVIDERS: ATTEND Family Medicine
DX: I10 Essential (primary) hypertension (principal); E53.8 Deficiency of other specified B group vitamins; R73.01 Impaired fasting glucose; E55.9 Vitamin D deficiency, unspecified; M17.0 Bilateral primary osteoarthritis of knee; K76.0 Fatty (change of) liver, not elsewhere classified; N40.1 Benign prostatic hyperplasia with lower urinary tract symptoms; K59.09 Other constipation; E66.9 Obesity, unspecified; Z68.33 Body mass index [BMI] 33.0-33.9, adult; Z79.82 Long term (current) use of aspirin; Z79.899 Other long term (current) drug therapy

== ENCOUNTER → 2024-11-15 | Outpatient (CLI) | payer MEDICARE ==
[2024-11-15 09:57] LABS: BASO % 0.6 % (0.0-1.0); EOS # 0.2 10^3/uL (0.0-0.5); EOS % 2.6 % (0.0-3.0); HEMATOCRIT 45.4 % (42.0-52.0); HEMOGLOBIN 15.1 g/dl (13.5-17.5); LYMPH # 1.6 10^3/uL (1.5-5.0); LYMPH % 22.9 % (24.0-44.0); MEAN CORPUSCULAR HEMOGLOBIN 28.8 pg (27.0-33.0); MEAN CORPUSCULAR HGB CONC 33.3 g/dl (32.0-36.5); MEAN CORPUSCULAR VOLUME 86.5 fl (80.0-96.0); MONO # 0.4 10^3/uL (0.0-0.8); MONO % 5.8 % (2.0-8.0); NEUTROPHILS # 4.6 10^3/uL (1.5-8.5); NEUTROPHILS % 67.5 % (36.0-66.0); PLATELET COUNT, AUTOMATED 168 10^3/uL (150-450); RED BLOOD COUNT 5.25 10^6/uL (4.30-6.10); WHITE BLOOD COUNT 6.9 10^3/uL (4.0-10.0)
[2024-11-15 10:07] LABS: HEMOGLOBIN A1c 5.3 % (4.0-6.0)
[2024-11-15 10:20] LABS: ALBUMIN 3.7 G/DL (3.2-5.2); ALKALINE PHOSPHATASE 77 U/L (40-129); ALT/SGPT 33 U/L (7.0-40); AST/SGOT 44 U/L (<34); BILIRUBIN,TOTAL 0.5 MG/DL (0.3-1.2); BLOOD UREA NITROGEN 25 MG/DL (9-23); CALCIUM LEVEL 9.3 MG/DL (8.3-10.6); CARBON DIOXIDE LEVEL 29 MMOL/L (20-31); CHLORIDE LEVEL 108 MMOL/L (98-107); CHOLESTEROL LEVEL 217 MG/DL (<200); CHOLESTEROL RISK RATIO 4.77 (<5); CREATININE FOR GFR 1.13 MG/DL (0.70-1.30); GLOMERULAR FILTRATION RATE > 60.0 (>49); GLUCOSE, FASTING 100 MG/DL (74-106); HDL CHOLESTEROL 45.4 MG/DL (>40); LDL CHOLESTEROL 138.2 MG/DL (<100); NON-HDL-C 171.6 MG/DL; POTASSIUM SERUM 4.7 MMOL/L (3.5-5.1); SODIUM LEVEL 141 MMOL/L (136-145); TOTAL PROTEIN 6.8 G/DL (5.7-8.2); TRIGLYCERIDES LEVEL 167 MG/DL (<150)
[2024-11-15 10:21] LABS: FERRITIN 97.1 NG/ML (10.5-307.3)
[2024-11-15 10:22] LABS: TOTAL 25(OH) VITAMIN D 55.6 NG/ML (20.0-100.0); VITAMIN B12 LEVEL 407 PG/ML (211-911)
[2024-11-15 10:30] LABS: PTH INTACT 47.4 PG/ML (18.5-88.0)
[2024-11-15 10:50] LABS: CPK CREATINE PHOSPHOKINASE 1286 U/L (46-171)
== END ==
LOC: M LAB 08:53
PROVIDERS: ATTEND Family Medicine
DX: E78.5 Hyperlipidemia, unspecified (principal); R73.01 Impaired fasting glucose; E53.8 Deficiency of other specified B group vitamins; I10 Essential (primary) hypertension; Z12.5 Encounter for screening for malignant neoplasm of prostate; E55.9 Vitamin D deficiency, unspecified; K76.0 Fatty (change of) liver, not elsewhere classified
CPT/HCPCS: 36415; 80053; 80061; 81596; 82306; 82550; 82607; 82728; 83036; 83880; 83970; 85025; G0103

== ENCOUNTER → 2025-05-29 | Outpatient (CLI) | payer MEDICARE ==
[~2025-05-29] MED LIST changes: -FLOM0.4C39 PO; +TAMS-18 PO
[2025-05-29 08:01] LABS: BASO # 0.0 10^3/uL (0.0-0.2); BASO % 0.6 % (0.0-1.0); EOS # 0.1 10^3/uL (0.0-0.5); EOS % 2.2 % (0.0-3.0); LYMPH # 1.5 10^3/uL (1.5-5.0); LYMPH % 22.8 % (24.0-44.0); MONO # 0.4 10^3/uL (0.0-0.8); MONO % 6.3 % (2.0-8.0); NEUTROPHILS # 4.4 10^3/uL (1.5-8.5); NEUTROPHILS % 67.6 % (36.0-66.0); PLATELET COUNT, AUTOMATED 142 10^3/uL (150-450)
[2025-05-29 08:21] LABS: ESTIMATED AVERAGE GLUCOSE 111.0 MG/DL (60-110)
[2025-05-29 08:33] LABS: PSA SCREENING 5.53 NG/ML (< 4.00)
[2025-05-29 08:37] LABS: ALT/SGPT 25.0 U/L (7.0-40); AST/SGOT 19.0 U/L (<34); CALCIUM LEVEL 9.3 MG/DL (8.3-10.6); CARBON DIOXIDE LEVEL 30.0 MMOL/L (20-31); CHLORIDE LEVEL 105.0 MMOL/L (98-107); CHOLESTEROL LEVEL 205.0 MG/DL (<200); CHOLESTEROL RISK RATIO 4.14 (<5); CPK CREATINE PHOSPHOKINASE 187.0 U/L (46-171); CREATININE FOR GFR 1.1 MG/DL (0.70-1.30); GLOMERULAR FILTRATION RATE 73.6 (>49); LDL CHOLESTEROL 120.7 MG/DL (<100); NON-HDL-C 155.5 MG/DL; POTASSIUM SERUM 4.4 MMOL/L (3.5-5.1); SODIUM LEVEL 144.0 MMOL/L (136-145); TOTAL 25(OH) VITAMIN D 51.5 NG/ML (20.0-100.0); TRIGLYCERIDES LEVEL 174.0 MG/DL (<150)
[2025-05-29 08:38] LABS: FREE T4 1.17 NG/DL (0.89-1.76)
[2025-05-29 08:39] LABS: VITAMIN B12 LEVEL 511.0 PG/ML (211-911)
[2025-05-29 08:40] LABS: PTH INTACT 61.9 PG/ML (18.5-88.0)
== END ==
LOC: M LAB 07:06
PROVIDERS: ATTEND Family Medicine
DX: E53.8 Deficiency of other specified B group vitamins (principal); I10 Essential (primary) hypertension; E78.5 Hyperlipidemia, unspecified; E55.9 Vitamin D deficiency, unspecified; K76.0 Fatty (change of) liver, not elsewhere classified; R73.01 Impaired fasting glucose; Z12.5 Encounter for screening for malignant neoplasm of prostate
CPT/HCPCS: 36415; 80053; 80061; 81517; 82306; 82550; 82607; 82728; 83036; 83880; 83970; 84439; 84443; 85025; G0103

== ENCOUNTER → 2025-08-15 | Outpatient (CLI) | payer MEDICARE ==
[2025-08-15 12:26] LABS: BASO # 0.0 10^3/uL (0.0-0.2); BASO % 0.5 % (0.0-1.0); EOS # 0.2 10^3/uL (0.0-0.5); EOS % 2.8 % (0.0-3.0); LYMPH # 1.9 10^3/uL (1.5-5.0); LYMPH % 25.8 % (24.0-44.0); MONO # 0.5 10^3/uL (0.0-0.8); MONO % 6.9 % (2.0-8.0); NEUTROPHILS # 4.7 10^3/uL (1.5-8.5); NEUTROPHILS % 63.5 % (36.0-66.0); PLATELET COUNT, AUTOMATED 174 10^3/uL (150-450)
[2025-08-15 12:36] LABS: INR 0.93
[2025-08-15 12:42] LABS: ALT/SGPT 26.0 U/L (7.0-40); AST/SGOT 21.0 U/L (<34); CALCIUM LEVEL 9.3 MG/DL (8.3-10.6); CARBON DIOXIDE LEVEL 28.0 MMOL/L (20-31); CHLORIDE LEVEL 105.0 MMOL/L (98-107); CREATININE FOR GFR 1.13 MG/DL (0.70-1.30); GLOMERULAR FILTRATION RATE 71.2 (>49); IRON (FE) 85.0 UG/DL (65-175); PERCENT SATURATION 24.9 % (19.7-50.0); POTASSIUM SERUM 4.4 MMOL/L (3.5-5.1); SODIUM LEVEL 141.0 MMOL/L (136-145)
== END ==
LOC: M WUC 08:09
PROVIDERS: ATTEND Orthopaedic Surgery
DX: Z01.818 Encounter for other preprocedural examination (principal); M25.569 Pain in unspecified knee; M17.11 Unilateral primary osteoarthritis, right knee

== ENCOUNTER → 2025-09-05 | Outpatient (CLI) | payer MEDICARE | LOC: M RAD 16:55 | PROVIDERS: ATTEND Family Medicine | DX: Z12.2 Encounter for screening for malignant neoplasm of respiratory organs (principal); Z87.891 Personal history of nicotine dependence ==